=== PATIENT | male | born 1980 | race Two or more races ===

== ENCOUNTER 2017-09-16 16:24 | Emergency (ER) | payer OTHER ==
[~2017-09-16] VITALS: Ht 180.3 cm; Wt 162.2 kg
[2017-09-16 16:26] VITALS: BP 171/112
[2017-09-16] MEDS ORDERED: DIPH,PERTUSS(ACELL),TET VAC/PF 0.5 ML IM-VACC ONE ×2 (17:00→17:06)
[2017-09-16] MEDS ORDERED: BACITRACIN ZINC OINT 500U/GM, 0.9 GM ONE (17:06)
== END 2017-09-16 17:21 | disposition home or self-care (01) ==
LOC: ED 17:15
DX: S61.031A Puncture wound without foreign body of right thumb without damage to nail, initial encounter (principal); W45.8XXA Other foreign body or object entering through skin, initial encounter; Y93.89 Activity, other specified; Y92.89 Other specified places as the place of occurrence of the external cause; Y99.8 Other external cause status
CPT/HCPCS: 90471; 90715; 99284

== ENCOUNTER 2018-04-14 12:04 | Emergency (ER) | payer OTHER ==
[~2018-04-14] VITALS: Ht 180.3 cm; Wt 156.7 kg
[2018-04-14 12:12] VITALS: BP 137/115
[2018-04-14] MEDS ORDERED: MICROFIBRILLAR COLLAGEN 0.5GM/PACK TP ONE (12:30)
[2018-04-14] MEDS ORDERED: LIDOCAINE 1%-EPI 1:100K, 20ML SQ ONE (12:30)
[2018-04-14] MEDS ORDERED: TRANEXAMIC ACID 100 MG/ML, 10ML TP ONE (12:30)
[2018-04-14] MEDS ORDERED: TRANEXAMIC ACID 100 MG/ML, 10ML ONE (12:47)
[2018-04-14] MEDS ORDERED: LIDOCAINE-MPF 2%, 2ML ONE (12:48)
[2018-04-14] MEDS ORDERED: LIDOCAINE 1%-EPI 1:100K, 30ML ONE (13:02)
== END 2018-04-14 14:24 | disposition home or self-care (01) ==
LOC: ED 12:51
DX: S90.511A Abrasion, right ankle, initial encounter (principal); X58.XXXA Exposure to other specified factors, initial encounter; Y93.89 Activity, other specified; Y99.8 Other external cause status; Y92.89 Other specified places as the place of occurrence of the external cause
CPT/HCPCS: 99283